=== PATIENT | female | born 1970 | race Caucasian/White ===

== ENCOUNTER → 2017-03-23 | Outpatient (CLI) | payer BC ==
[~2017-03-23] MED LIST: ANUSOL HC SUPP1 SUPP PR; BIOTIN1 MG PO; CALCIUM600 MG PO; SIMVASTATIN20 MG PO
== END ==
LOC: KOH-I 09:41
DX: Z12.31 Encounter for screening mammogram for malignant neoplasm of breast (principal); M54.6 Pain in thoracic spine
CPT/HCPCS: 74178; 76536; Q9962

== ENCOUNTER → 2017-04-12 | Day surgery (SDC) | payer BC ==
[~2017-04-12] VITALS: Ht 160 cm; Wt 72.6 kg
== END | disposition home or self-care (01) ==
LOC: OR 08:00
PROVIDERS: Internal Medicine Gastroenterology
PROC: 0DBH8ZZ Excision of Cecum, Via Natural or Artificial Opening Endoscopic (ICD-10-PCS; principal; 2017-04-12 14:30)
DX: D12.0 Benign neoplasm of cecum (principal); K64.2 Third degree hemorrhoids; K64.4 Residual hemorrhoidal skin tags; E66.9 Obesity, unspecified; Z80.0 Family history of malignant neoplasm of digestive organs; Z88.0 Allergy status to penicillin; Z85.820 Personal history of malignant melanoma of skin; Z79.899 Other long term (current) drug therapy; Z98.51 Tubal ligation status
CPT/HCPCS: J2250; J3010; J7030

== ENCOUNTER → 2017-04-18 | Outpatient (CLI) | payer BC | LOC: US 08:59 | DX: E04.1 Nontoxic single thyroid nodule (principal); R93.8 Abnormal findings on diagnostic imaging of other specified body structures | CPT/HCPCS: 10022; 76536 ==

== ENCOUNTER → 2021-10-18 | Outpatient (CLI) | payer BC | LOC: KOH-I 15:24 | DX: R13.10 Dysphagia, unspecified (principal); R04.1 Hemorrhage from throat; E04.1 Nontoxic single thyroid nodule | CPT/HCPCS: 76536 ==

== ENCOUNTER → 2021-10-31 | Outpatient (CLI) | payer BC | LOC: MAMO 13:22 | DX: Z12.31 Encounter for screening mammogram for malignant neoplasm of breast (principal) | CPT/HCPCS: 77063; 77067 ==